=== PATIENT | female | born 1940 | race Caucasian/White ===

== ENCOUNTER 2020-08-01 11:00 | Emergency (ER) | payer OTHER, SELFPAY ==
--- NOTE | ~2020-08-01 | XR_ITS ---
XR finger 3rd RT min 2V DATE: 08/01/2020 11:49 INDICATION: Wood splinter in finger one week ago. Redness and swelling. TECHNIQUE: 4 views COMPARISON: None FINDINGS: No soft tissue radiopaque foreign bodies identified. There is nonspecific soft tissue swell ing of the third digit. There is diffuse osteopenia. 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 There is severe osteoarthritis with s evere joint space narrowing and prominent spurring at the distal interphalangeal joint of the third d igit. Prominent osteoarthritic changes noted at the distal interphalangeal joint of the second digit. No fracture or dislocation, periosteal reaction or bone destruction is detected. IMPRESSION: Severe osteoarthritic change at the distal interphalangeal joint and to a lesser extent t hird metacarpophalangeal joint Prominent osteoarthritic change of the distal interphalangeal joint of the second digit Diffuse osteopenia No radiopaque foreign body is evident. There is soft tissue swelling of the third digit. Reviewed, dictated and finalized at location [facility] [employer] IMPRESSION: Severe osteoarthritic change at the distal interphalangeal joint an d to a lesser extent third metacarpophalangeal joint Prominent osteoarthritic change of the distal interphalangeal joint of the seco nd digit Diffuse osteopenia No radiopaque foreign body is evident. There is soft tissue swelling of the thi rd digit.
[2020-08-01 11:02] VITALS: BP 143/100; PULSE 77; RESP 16; TEMP 36.2; O2SAT 96
--- NOTE | 2020-08-01 11:29 | ED.GENADULT ---
HPI - General Adult General Chief complaint: Extremity Injury, Upper Stated complaint: finger infection Time Seen by Provider: 08/01/20 11:05 Source: patient Mode of arrival: ambulatory Limitations: no limitations History of Present Illness HPI narrative: Patient is a 80-year-old female who presents to emergency department for evaluation of red tender swollen finger that has been present for 2 weeks patient notes that she had a splinter in her fingernail which she was able to remove shortly thereafter followed by red tender swollen distal phalanx which now has some erythema into the middle phalanx patient notes moderate aching pain worse with touch and palpation patient attempted to stick a needle into the infected area with no results. Patient is not been seen for this complaint presents in no distress. Patient denies any fever did note some chills. Paronychia underneath some chronic skin distress cephalexin Related Data Allergies Allergy/AdvReac Type Severity Reaction Status Date / Time Penicillins Allergy Unknown Verified 08/01/20 11:05 Review of Systems Review of Systems: All systems reviewed & are unremarkable except as noted in HPI and below PMFSH Surgical History Surgical History (Updated 08/01/20 @ 11:31 by Ranjeet Knutson PA-C) H/O hernia repair Social History Social History (Updated 08/01/20 @ 11:31 by Ranjeet Knutson PA-C) Smoking status: Never smoker Gender identity (if verbalized by the patient): Female Exam Narrative: Exam Narrative: GENERAL: Well-appearing, well-nourished, and in no acute distress. HEAD: Normocephalic, atraumatic. EYES: PERRLA and EOMI. ENT: Nares clear, no rhinorrhea or epistaxis. Mucous membranes moist. CHEST: Clear to auscultation. No respiratory distress. No wheezes rales or rhonchi HEART: Regular rate and rhythm. No murmur heard. Normal peripheral pulses. EXTREMITIES: Patient with erythematous swollen tender area over the third middle phalanx where she has arthritic changes chronically with overriding erythema at this time with slight erythema extending along the ulnar aspect of the middle phalanx patient with difficulty fully flexing and extending the digit. SKIN: Warm, dry, no rash. NEURO: No focal deficits. Alert and oriented x3. Neurovascularly intact. Capillary refill less than 2 seconds PSYCH: Normal mood and affect. Course Course Emergency Course: Patient was evaluated in the emergency department for finger pain and swelling patient was given IV antibiotics had blood work and imaging performed wound culture as well patient will follow with hand surgery early in the course of next week is aware of the recommendations and discussion with hand surgeon patient is afebrile nontoxic-appearing no distress noted 89- morbidly obese Covid is not Consultations Consultation #1: Discussed case with plastic surgeon Dr. Clemons reviewed case with Dr. Clemons who will follow the patient on Monday Date: 08/01/20 Time: 13:10 Vital Signs Vital signs: Vital Signs Temperature 97.2 F L 08/01/20 11:02 Pulse Rate 77 08/01/20 11:02 Respiratory Rate 16 08/01/20 11:02 Blood Pressure 143/100 H 08/01/20 11:02 Pulse Oximetry 96 08/01/20 11:02 Temperature 97.2 F L 08/01/20 11:02 Pulse Rate 77 08/01/20 11:02 Respiratory Rate 16 08/01/20 11:02 Blood Pressure 143/100 H 08/01/20 11:02 Pulse Oximetry 96 08/01/20 11:02 Medical Decision Making MDM Narrative Medical decision making narrative: Patients pain is consistent with musculoskeletal etiolog felt that is likely inflammatory such as gout less likely infection given that is been 2 weeks course duration patient denies injury or trauma. Patient was given IV antibiotic had her tetanus updated in the emergency department. I&D was performed revealing bloody clear liquid today. No signs of neurological or vascular compromise on exam. Compartments and tisues are soft without signs of compartment syndrome. Patient
[2020-08-01 11:49] LABS: Basophils Absolute Auto 0.1 K/mm3 (0.0-0.1); Basophils Percent Auto 0.5 % (0.2-1.2); Eosinophils Absolute Auto 0.3 K/mm3 (0-0.3); Eosinophils Percent Auto 2.4 % (0-4.4); Hematocrit 40.4 % (37.0-47.0); Hemoglobin 13.2 g/dL (12.0-15.0); Immature Granulocyte Absolute 0.04 K/mm3 (0.00-0.031); Immature Granulocyte Percent A 0.4 % (0-0.5); Lymphocytes Absolute Auto 2.35 K/mm3 (0.9-3.2); Lymphocytes Percent Auto 22.3 % (18.3-44.2); Mean Corpuscular HGB Conc 32.7 g/dl (32-36); Mean Corpuscular Hemoglobin 30.4 pg (26-34); Mean Corpuscular Volume 93.1 fl (80-100); Mean Platelet Volume 8.9 fl (7.4-10.4); Monocytes Absolute Auto 1.1 K/mm3 (0.1-0.6); Monocytes Percent Auto 10.6 % (2.6-8.5); Neutrophils Absolute Auto 6.7 K/mm3 (1.3-6.7); Neutrophils Percent Auto 63.8 % (45.5-73.1); Platelet Count Result 315 k/mm3 (150-375); Red Blood Count 4.34 M/mm3 (4.2-5.4); Red Cell Distribution Width 13.2 % (11.5-14.5); White Blood Count 10.5 K/mm3 (4.5-10.0)
[2020-08-01 12:01] LABS: Uric Acid 4.1 mg/dL (2.5-7.5)
[2020-08-01] MEDS: SODIUM CHLORIDE 0.9% IV 500 ML 999 ML IV CONT (12:01)
[2020-08-01 12:09] LABS: Anion Gap 5 mmol/L (8-16); Blood Urea Nitrogen 13 mg/dL (7-17); CRP 2.5 mg/dL (<1.0); Calcium 9.1 mg/dL (8.4-10.2); Carbon Dioxide 31 mmol/L (22-30); Chloride 102 mmol/L (98-107); Estimated Glomerular Filt Rate > 60; Glucose 89 mg/dL (65-105); Potassium 4.7 mmol/L (3.4-5.0); Sodium 138 mmol/L (137-145)
[2020-08-01 12:36] LABS: Erythrocyte Sedimentation Rate 58 mm/hr (0-20)
[2020-08-01] MEDS: COLCHICINE 0.6 MG TABLET 1.2 MG PO (13:01)
[2020-08-01] MEDS: TETANUS,DIPHTHERIA,AC PERTUSSIS ADULT (0.5 ML) BOOSTRIX IM (13:01)
[2020-08-01] MEDS: DEXAMETHASONE SOD PHOS INJ 4 MG/ML VIAL 10 MG IV PUSH (13:01)
== END 2020-08-01 13:10 | disposition home or self-care (01) ==
PROVIDERS: Emergency Medicine Emergency Medical Services; Emergency Provider Emergency Medicine
DX: M79.89 Other specified soft tissue disorders (principal); Z98.84 Bariatric surgery status; Z23 Encounter for immunization; E66.01 Morbid (severe) obesity due to excess calories; Z68.26 Body mass index [BMI] 26.0-26.9, adult; M85.841 Other specified disorders of bone density and structure, right hand; M19.041 Primary osteoarthritis, right hand
CPT/HCPCS: 10060; 26010; 36415; 73140; 80048; 84550; 85025; 85652; 86140; 87070; 87075; 87077; 87186; 87205; 90471; 90715; 96365; 96375; 99284; A9270; J0690; J1100; J7040